=== PATIENT | female | born 1980 | race Two or more races ===

== ENCOUNTER 2024-03-26 09:45 | Emergency (ER) | payer OTHER ==
[~2024-03-26] VITALS: Ht 170.2 cm; Wt 98.9 kg
[2024-03-26 10:43] VITALS: BP 146/80; PULSE 74; RESP 20; TEMP 97.8; O2SAT 97
[2024-03-26] MEDS ORDERED: BENZ200C64 PO (11:59)
[2024-03-26] MEDS ORDERED: LORA-1126 PO (11:59)
[2024-03-26] MEDS ORDERED: PROM1SOL4 PO (11:59)
== END 2024-03-26 12:10 | disposition home or self-care (01) ==
LOC: ER 09:45
DX: R05.9 Cough, unspecified (principal)
CPT/HCPCS: 71046